=== PATIENT | female | born 1945 | race Caucasian/White ===

== ENCOUNTER → 2016-09-04 | Outpatient (CLI) | payer MEDICARE ==
[~2016-09-04] MED LIST: AMLO10TA2 PO; ASPI81CH CHEW; CORE25TA PO; FURO1TAB60 PO; LANTUS2P SQ; LEXA10TA PO; LISI40TA PO; MULT-65 PO; NOVO7030P2 SQ; PLAV75TA29 PO; PRAV40TA2 PO; VITA1000 PO
[2016-09-04 08:30] LABS: HEMATOCRIT 40.7 % (35.0-46.0); MEAN CELL VOLUME 90.2 FL (80.0-100.0); MEAN CORPUSCULAR HEMOGLOBIN 29.1 PG (27.0-34.0); MEAN CORPUSCULAR HGB CONC 32.2 % (32.0-36.0); PLATELET COUNT 384 TH/MM3 (150-450); RED BLOOD COUNT 4.51 MIL/MM3 (4.00-5.30); RED CELL DISTRIBUTION WIDTH 18.7 % (11.6-17.2); REVIEW FLAG FINAL; WHITE BLOOD COUNT 10.6 TH/MM3 (4.0-11.0)
[2016-09-04 08:42] LABS: POTASSIUM 5.2 MEQ/L (3.5-5.1)
--- NOTE | 2016-09-04 09:22 | RADRPT ---
EXAM DATE/TIME: 09/04/2016 09:15 [facility] COMPARISON: No previous studies available for comparison. INDICATIONS : Evaluate for pneumonia, pneumothorax and communicable disease. Pre op for angiogram. MEDICAL HISTORY : None. SURGICAL HISTORY : None. ENCOUNTER: Initial ACUITY: 1 day PAIN SCORE: 0/10 LOCATION: Bilateral chest FINDINGS: PA and lateral views of the chest demonstrate the lungs to be symmetrically aerated without evidence of mass, infiltrate or effusion. Heart size is upper limits of normal and well compensated. Left IJ t unneled dialysis type catheter with the tip projecting over the central venous system. Osseous struct ures are intact. Surgical clips in the right upper abdominal quadrant are characteristic of prior cho lecystectomy. CONCLUSION: No acute cardiopulmonary process. Terrence Bridges MD on September 04, 2016 at 9:19 Board Certified Radiologist. This report was verified electronically.
--- NOTE | 2016-09-04 16:50 | EKG ---
Date Performed: 09/04/2016 Time Performed: 08:37:07 PTAGE: 70 years EKG: Sinus rhythm POSSIBLE OLD ANTERIOR MYOCARDIAL INFARCTION, OF INDETERMINATE AGE ABNORMAL ECG NO PREVIOUS TRACING DOCTOR: Compa Arguello Interpretating Date/Time 09/04/2016 16:49:57
== END ==
LOC: CPRE 08:05
PROVIDERS: ATTEND Surgery
DX: Z01.812 Encounter for preprocedural laboratory examination (principal); Z01.811 Encounter for preprocedural respiratory examination; Z01.810 Encounter for preprocedural cardiovascular examination; N18.6 End stage renal disease; R94.31 Abnormal electrocardiogram [ECG] [EKG]
CPT/HCPCS: 36415; 71020; 80048; 85027; 93005

== ENCOUNTER → 2016-09-11 | Day surgery (SDC) | payer MEDICARE ==
[~2016-09-11] VITALS: Ht 162.6 cm; Wt 65.0 kg
[~2016-09-11] MED LIST changes: +CHLORHEXIDINE GLUCONATE 2 % 1 PACK (2 CLOTHS) TOPICAL PRN; +HEPARIN SODIUM - IV 10,000 UNITS/10 ML VIAL ONE; +INSULIN HUMAN REGULAR 1,000 UNITS/10 ML VIAL SQ PRN; +IOHEXOL 300 MG/ML 100 ML BTL (for Rad CT) OTHER ONE; +IOHEXOL 300 MG/ML 50 ML BTL (for RAD DIAG) OTHER ONE; +IOHEXOL 350 MG/ML 100 ML BTL (for Cath Lab) OTHER ONE; +IOHEXOL 350 MG/ML 50 ML BTL (for Cath Lab) OTHER ONE; +LACTATED RINGER'S 1000 ML IV PRN; +LIDOCAINE HCL 1% 30 ML VIAL INFIL ONE; +METOPROLOL TARTRATE 25 MG TAB PO PRN; +MIDAZOLAM HCL 5 MG/ML VIAL (1 ML) ONE; +POVIDONE IODINE 5% (ANTISEPSIS KIT) 4 APPLICATIONS EACH NARE PRN; +SODIUM CHLORID 0.9% 500 ML IV PRN
[2016-09-11 09:02] VITALS: BP 176/64; PULSE 64; RESP 18; TEMP 98.1; O2SAT 99
--- NOTE | 2016-09-11 13:37 | MA ---
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 History of long-term access in the left neck vein and with a history of her right upper extremity, she wanted to assess the left upper extremity. PROCEDURES 1. Venogram left upper extremity 2. Arteriogram 3. Venogram left upper extremity 4. Angiogram left upper extremity 5. Thoracic arch arteriogram 6. Angio-Seal right groin SURGEON Lamin Tadeo, DO IV FLUIDS 200 cc ANESTHESIA MAC and local 5 cc of 1% lidocaine ESTIMATED BLOOD LOSS Minimal URINE OUTPUT Not calculated. COMPLICATIONS None DISPOSITION To the DOC unit. PROCEDURE The patient's left wrist was accessed and cannulated for venous access. I ended up getting a small cannula in the left upper extremity and shot a left upper extremity venogram. The findings on the venogram were that the patient had a radial vein that appeared to be patent. The patient did not appear to have any adequate cephalic or basilic vein distally. It should be noted the patient did appear to have a brachial vein that gave rise to the basilic vein for the upper arms as it approached the arm pit. The patient did appear to have patent blood supply through the left axillary and subclavian veins as well as the SVC, although this is a little difficult to see as the patient did have a central venous line in this area. FINDINGS At the conclusion, there did not appear to be central venous occlusion, although there did appear to be a brachial vein as well as a more proximal basilic vein that was interconnected by the brachial vein as it was approaching the arm pit. After we got access to the right common femoral artery, I did not used duplex ultrasound, I used palpation of the artery and placed a 21 gauge needle in exchange for a 4-Emirati micropuncture catheter then a 5-Emirati sheath. I then advanced a pigtail catheter into the thoracic arch and shot a thoracic arch arteriogram in the proximal AMHARIC of about 45 degrees. After I shot my thoracic arch arteriogram, it showed be noted that findings were that the patient had a patent proximal innominate left common carotid and left subclavian arteries. I then used a vertebral catheter to cannulate the left subclavian artery and shot a left upper extremity arteriogram. My findings were that the proximal subclavian artery appeared to be patent. The left origin of the left vertebral and internal mammary were patent. The left axillary and subclavian arteries appeared to be patent. The patient had a patent left brachial artery without any stenosis and two-vessel runoff via the radial and ulnar artery. It was somewhat diminutive as it approached the wrist, but appeared to be patent. I did not perform a palmar arch arteriogram as my catheter was advanced into the proximal left subclavian artery. CONCLUSION The patient appeared to have a flow-limiting stenosis in the left subclavian artery, axillary artery, brachial artery and more proximal radial and ulnar artery. At the end of my procedure, I used an Angio-Seal to close the right groin after I performed arteriogram which showed that my catheter was in the common femoral artery above the superficial femoral and profunda femoral artery. DO NITISH Arellano/LORENZA /12:56 PM /1:26 PM DAELSO
== END | disposition home or self-care (01) ==
LOC: HSDC 07:48
PROVIDERS: ATTEND Surgery
DX: I70.208 Unspecified atherosclerosis of native arteries of extremities, other extremity (principal)
CPT/HCPCS: 36215; 75605; 75716; 75820; 82948; 84132; 86850; 86900; 86901; C1769; G0269; J1644; J2250; J3010; Q9967

== ENCOUNTER → 2016-10-12 | Day surgery (SDC) | payer MEDICARE ==
[~2016-10-12] VITALS: Ht 162.6 cm; Wt 68.1 kg
[~2016-10-12] MED LIST changes: +ACETAMINOPHEN/HYDROcodone 325 MG/5 MG TAB PO PRN; +BUPIVACAINE HCL PF 0.5% 30 ML VIAL ONE; +CLON0.2T PO; +DO NOT ADM ANY ANTICOAGULANT DRUGS PRN; +GELFOAM SIZE 100 ONE; +HYDR-3799 PO; +HYDR-3801 PO; -IOHEXOL 300 MG/ML 100 ML BTL (for Rad CT) OTHER ONE; -IOHEXOL 300 MG/ML 50 ML BTL (for RAD DIAG) OTHER ONE; -IOHEXOL 350 MG/ML 100 ML BTL (for Cath Lab) OTHER ONE; -IOHEXOL 350 MG/ML 50 ML BTL (for Cath Lab) OTHER ONE; -LIDOCAINE HCL 1% 30 ML VIAL INFIL ONE; -LISI40TA PO; -MIDAZOLAM HCL 5 MG/ML VIAL (1 ML) ONE; +MORPHINE SULFATE 8 MG/ML INJ IV PUSH PRN; +NOVOINJ SQ; +ONDANSETRON HCL 4 MG/2 ML VIAL IV PUSH ONE; +ONDANSETRON HCL 4 MG/2 ML VIAL IV PUSH PRN; +PHENYLEPH/NS 1000 MCG/10 ML SYR IV ONE; +PROPOFOL 200 MG/20 ML AMP IV ONE; +PROTAMINE SULFATE 50 MG/5 ML VIAL ONE; +SODIUM CHLORIDE 0.9% FLUSH 10 ML FLUSH IV FLUSH PRN; +SODIUM CHLORIDE 0.9% FLUSH 10 ML FLUSH IV FLUSH SCH; +THROMBIN (TOPICAL) 5,000 UNIT VIAL ONE; +VANCOMYCIN HCL 1000 MG VIAL ONE
[2016-10-12 10:37] LABS: ALT (GPT) 19 U/L (10-53); ANION GAP 10 MEQ/L (5-15); AST (GOT) 14 U/L (15-37); BICARBONATE 26.8 MEQ/L (21.0-32.0); BLOOD UREA NITROGEN 53 MG/DL (7-18); CHLORIDE 98 MEQ/L (98-107); GLOMERULAR FILTRATION RATE 7 ML/MIN (>89); POTASSIUM 5.7 MEQ/L (3.5-5.1); SODIUM (NA) 135 MEQ/L (136-145)
[2016-10-12 10:52] LABS: ALKALINE PHOSPHATASE 100 U/L (45-117); TOTAL BILIRUBIN ADULT 0.3 MG/DL (0.2-1.0)
[2016-10-12 11:32] LABS: AUTOMATED NEUTROPHIL # 8.9 TH/MM3 (1.8-7.7); BASOPHIL # 0.1 TH/MM3 (0-0.2); BASOPHIL % 0.8 % (0.0-2.0); EOSINOPHIL # 0.2 TH/MM3 (0-0.4); EOSINOPHIL % 1.3 % (0.0-4.0); HEMATOCRIT 35.1 % (35.0-46.0); HEMO FLAGS DIFF FINAL; LYMPH % 19.7 % (9.0-44.0); LYMPHOCYTE # 2.5 TH/MM3 (1.0-4.8); MEAN CELL VOLUME 91.8 FL (80.0-100.0); MEAN CORPUSCULAR HEMOGLOBIN 29.9 PG (27.0-34.0); MEAN CORPUSCULAR HGB CONC 32.5 % (32.0-36.0); MONO % 8.6 % (0.0-8.0); NEUT % 69.6 % (16.0-70.0); PLATELET COUNT 285 TH/MM3 (150-450); RED BLOOD COUNT 3.82 MIL/MM3 (4.00-5.30); WHITE BLOOD COUNT 12.7 TH/MM3 (4.0-11.0)
--- NOTE | 2016-10-12 13:17 | MP ---
cc: FER TADEO DATE OF SURGERY 10/12/2016 PREOPERATIVE DIAGNOSES 1. End-stage renal disease. 2. 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 POSTOPERATIVE DIAGNOSES 1. End-stage renal disease. 2. 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 PROCEDURES Left upper extremity brachial artery to brachial vein A-V fistula. SURGEON Dr. Fer Tadeo. FIREWORKS MAKER Tae Leo MD IV FLUIDS 200 cc. ESTIMATED BLOOD LOSS Minimal. URINE OUTPUT Not calculated. COMPLICATIONS None. DISPOSITION To PACU. PROCEDURE The patient's left upper extremity was prepped and draped in sterile fashion after being given 1 gram of IV vancomycin. I made a linear incision just above the antecubital fossa with a scalpel and electrocautery. It should be noted that before I did make my incision, we did use a tourniquet in order to determine if the patient had an appropriate vein to the left upper extremity. The patient did not have appropriate superficial veins but had brachial veins and the one vein that was on the more medial aspect appeared to be at least 3-4 mm in diameter. I dissected down through the bicipital aponeurosis after injecting approximately 15 cc of 1% lidocaine with epinephrine. Once I divided the bicipital aponeurosis, I mobilized the brachial artery and the parabrachial veins. I divided one of the parabrachial veins distally with a medium clip and a 2-0 tie. I controlled the brachial artery with a pediatric profunda clamp proximally and a vessel loop distally and then it should be noted I did give 3,000 units of heparin before performing my anastomosis which was an end-to-side anastomosis with a 5-0 Prolene on a BV1. It should be noted after the anastomosis there was a nice thrill in the brachial vein and then distally there were good signals in the palmar arch radial and ulnar arteries. I did use a small piece of Surgicel at the end of the case and I closed in layers with 2-0, 3-0 and a 4-0 Vicryl absorbable suture. I used Dermabond over the skin. The patient tolerated the procedure well and was taken to the PACU at the end of the case. DO DONALDO Arellano /12:33 PM /1:13 PM
[2016-10-12 14:15] VITALS: BP 131/71; PULSE 68; RESP 18; TEMP 98.3; O2SAT 98
== END | disposition home or self-care (01) ==
LOC: HSDC 08:15
PROVIDERS: ATTEND Surgery
DX: T82.590A Other mechanical complication of surgically created arteriovenous fistula, initial encounter (principal); I13.2 Hypertensive heart and chronic kidney disease with heart failure and with stage 5 chronic kidney disease, or end stage renal disease; N18.6 End stage renal disease; I50.9 Heart failure, unspecified; E11.22 Type 2 diabetes mellitus with diabetic chronic kidney disease; Z99.2 Dependence on renal dialysis
CPT/HCPCS: 01844; 36821; 76937; 80053; 82948; 85025; 86850; 86900; 86901; J1644; J2370; J2405; J2720; J3010; J3370

== ENCOUNTER → 2016-12-28 | Outpatient (CLI) | payer MEDICARE ==
[~2016-12-28] MED LIST changes: -ACETAMINOPHEN/HYDROcodone 325 MG/5 MG TAB PO PRN; -BUPIVACAINE HCL PF 0.5% 30 ML VIAL ONE; -CHLORHEXIDINE GLUCONATE 2 % 1 PACK (2 CLOTHS) TOPICAL PRN; -DO NOT ADM ANY ANTICOAGULANT DRUGS PRN; +FAMOTIDINE 20 MG/2 ML VIAL ONE; -GELFOAM SIZE 100 ONE; -HEPARIN SODIUM - IV 10,000 UNITS/10 ML VIAL ONE; -INSULIN HUMAN REGULAR 1,000 UNITS/10 ML VIAL SQ PRN; -LACTATED RINGER'S 1000 ML IV PRN; -METOPROLOL TARTRATE 25 MG TAB PO PRN; -MORPHINE SULFATE 8 MG/ML INJ IV PUSH PRN; -ONDANSETRON HCL 4 MG/2 ML VIAL IV PUSH ONE; -ONDANSETRON HCL 4 MG/2 ML VIAL IV PUSH PRN; -PHENYLEPH/NS 1000 MCG/10 ML SYR IV ONE; -POVIDONE IODINE 5% (ANTISEPSIS KIT) 4 APPLICATIONS EACH NARE PRN; -PROPOFOL 200 MG/20 ML AMP IV ONE; -PROTAMINE SULFATE 50 MG/5 ML VIAL ONE; -SODIUM CHLORID 0.9% 500 ML IV PRN; -SODIUM CHLORIDE 0.9% FLUSH 10 ML FLUSH IV FLUSH PRN; -SODIUM CHLORIDE 0.9% FLUSH 10 ML FLUSH IV FLUSH SCH; -THROMBIN (TOPICAL) 5,000 UNIT VIAL ONE; -VANCOMYCIN HCL 1000 MG VIAL ONE
[2016-12-28 09:21] LABS: AUTOMATED NEUTROPHIL # 8.7 TH/MM3 (1.8-7.7); BASOPHIL # 0.1 TH/MM3 (0-0.2); BASOPHIL % 0.8 % (0.0-2.0); EOSINOPHIL # 0.4 TH/MM3 (0-0.4); EOSINOPHIL % 2.9 % (0.0-4.0); HEMATOCRIT 36.1 % (35.0-46.0); HEMO FLAGS DIFF FINAL; LYMPHOCYTE # 2.3 TH/MM3 (1.0-4.8); MEAN CELL VOLUME 91.4 FL (80.0-100.0); MEAN CORPUSCULAR HEMOGLOBIN 29.5 PG (27.0-34.0); MEAN CORPUSCULAR HGB CONC 32.3 % (32.0-36.0); MONO % 10.3 % (0.0-8.0); PLATELET COUNT 325 TH/MM3 (150-450); RED BLOOD COUNT 3.95 MIL/MM3 (4.00-5.30); WHITE BLOOD COUNT 12.8 TH/MM3 (4.0-11.0)
[2016-12-28 09:41] LABS: POTASSIUM 4.6 MEQ/L (3.5-5.1)
--- NOTE | 2016-12-28 09:59 | RADRPT ---
EXAM DATE/TIME: 12/28/2016 09:36 [facility] COMPARISON: CHEST PA & LAT, September 04, 2016, 9:15. INDICATIONS : Evaluate for pneumonia, pneumothorax or communicable disease. Pre op left upper extremity fistula. MEDICAL HISTORY : Hypertension. Myocardial infarction. Diabetes mellitus type II. stroke, renal disease, tia SURGICAL HISTORY : infusaport ENCOUNTER: Initial ACUITY: 1 day PAIN SCORE: 0/10 LOCATION: Bilateral chest FINDINGS: PA and lateral views of the chest demonstrate the lungs to be symmetrically aerated without evidence of mass, infiltrate or effusion. The left IJ dialysis catheter in good position. The cardiomediastina l contours are unremarkable. Osseous structures are intact. CONCLUSION: 1. No acute cardiopulmonary disease. Siddhartha Abdalla MD on December 28, 2016 at 9:57 Board Certified Radiologist. This report was verified electronically.
--- NOTE | 2016-12-28 19:19 | EKG ---
Date Performed: 12/28/2016 Time Performed: 09:03:20 PTAGE: 71 years EKG: Sinus rhythm WITH OCCASIONAL SUPRAVENTRICULAR PREMATURE COMPLEXES ST DEVIATION AND MODERATE T-WAVE ABNORMALITY, C ONSIDER LATERAL ISCHEMIA ABNORMAL ECG PREVIOUS TRACING : 09/04/2016 08.37 Compared to prior tracing no significant change DOCTOR: Deacon Ramsay Interpretating Date/Time 12/28/2016 19:17:35
== END ==
LOC: CPRE 08:33
PROVIDERS: ATTEND Surgery
DX: Z01.810 Encounter for preprocedural cardiovascular examination (principal); Z01.811 Encounter for preprocedural respiratory examination; Z01.812 Encounter for preprocedural laboratory examination; N18.6 End stage renal disease; R94.31 Abnormal electrocardiogram [ECG] [EKG]
CPT/HCPCS: 36415; 71020; 80048; 85025; 86850; 86900; 86901; 93005

== ENCOUNTER → 2017-01-04 | Day surgery (SDC) | payer MEDICARE ==
[~2017-01-04] VITALS: Ht 162.6 cm; Wt 66.8 kg
[~2017-01-04] MED LIST changes: +*LABETALOL HCL 100 MG/20 ML VIAL PERIprocedural Use ONLY ONE; +ACETAMINOPHEN/HYDROcodone 325 MG/5 MG TAB PO PRN; +BUPIVACAINE HCL PF 0.5% 30 ML VIAL ONE; +CHLORHEXIDINE GLUCONATE 2 % 1 PACK (2 CLOTHS) TOPICAL PRN; +DEXAMETHASONE SOD PHOS 4 MG/ML VIAL IV ONE; +DO NOT ADM ANY ANTICOAGULANT DRUGS PRN; -FAMOTIDINE 20 MG/2 ML VIAL ONE; +GELFOAM SIZE 100 ONE; +HEPARIN SODIUM - IV 10,000 UNITS/10 ML VIAL ONE; +HEPARIN SODIUM - IV 2,000 UNITS/2 ML VIAL ONE; +HEPARIN-NS/PF INJ 0 ML ONE; +HEPARIN-NS/PF INJ 500 ML ONE; +INSULIN HUMAN REGULAR 1,000 UNITS/10 ML VIAL SQ PRN; +LACTATED RINGER'S 1000 ML IV PRN; +LIDOCAINE HCL 1% PF 5 ML AMPULE OTHER ONE; +MAGNESIUM SULFATE 1 GM/100 ML IV PRN; +METOPROLOL TARTRATE 25 MG TAB PO PRN; +MORPHINE SULFATE 4 MG/ML INJ IV PUSH PRN; +ONDANSETRON HCL 4 MG/2 ML VIAL IV PUSH ONE; +ONDANSETRON HCL 4 MG/2 ML VIAL IV PUSH PRN; +PHENYLEPH/NS 1000 MCG/10 ML SYR IV ONE; +POTASSIUM CHLOR 20 MEQ 100 ML x 2 BAGS IV PRN; +POTASSIUM CHLOR 20 MEQ/100 ML x 1 BAG IV PRN; +POTASSIUM PHOSPHATE 21 MMOL/NS 250 ML IV PRN; +POVIDONE IODINE 5% (ANTISEPSIS KIT) 4 APPLICATIONS EACH NARE PRN; +PROPOFOL 200 MG/20 ML AMP IV ONE; +PROTAMINE SULFATE 50 MG/5 ML VIAL ONE; +SODIUM CHLOR 0.9% 250 ML INJ 250 ML ONE; +SODIUM CHLORID 0.9% 500 ML IV PRN; +SODIUM CHLORIDE 0.9% FLUSH 10 ML FLUSH IV FLUSH PRN; +SODIUM CHLORIDE 0.9% FLUSH 10 ML FLUSH IV FLUSH SCH; +THROMBIN (TOPICAL) 20,000 UNIT SPRAY KIT ONE; +VANCOMYCIN HCL 1000 MG VIAL ONE; +ePHEDrine/NS 25 MG/5 ML SYR IV ONE; +hydrALAZINE HCL 20 MG/ML VIAL IV ONE
--- NOTE | 2017-01-04 17:10 | MP ---
cc: FER TADEO DATE OF SURGERY 01/04/2017 PREOPERATIVE DIAGNOSIS End-stage renal disease. A history of brachial vein arterial venous anastomosis of the left upper extremity. PROCEDURE The left upper extremity brachial vein transposition. SURGEON Dr. Fer Tadeo. MILITARY LAWYER Sivakumar Yadav. ANESTHESIA General with 20 mL of 0.25% Marcaine with epinephrine. IV FLUIDS 600 mL of crystalloid ESTIMATED BLOOD LOSS 100 URINE OUTPUT Not calculated. COMPLICATIONS None DISPOSITION To PACU PROCEDURE DETAILS The patient's left upper extremity was prepped and draped in sterile fashion under general tracheal anesthesia. We did give the patient 1 gram of IV vancomycin perioperatively. Then I made an incision over the medial aspect of the left upper extremity with a scalpel and electrocautery. I dissected down with Metzenbaum scissors along the level of the brachial vein. The brachial vein was paired and it coursed underneath the median nerve. It should be noted that the distal aspect of the brachial vein towards antecubital fossa had a thrill and it coursed underneath the median nerve and then in this area it had a nice thrill but it was fairly constricted. It should be noted that the more distal aspect of the vessel was more dilated. I did free it of any side branches with 3-0 and 4-0 silk sutures as well as multiple small and medium clips as needed. I marked the vein so it was not torsed and I the incision from the antecubital fossa towards the axilla. I divided the vessel close to the previous anastomosis at the antecubital fossa and I heparinized the patient with approximately 3000 units of heparin. I performed an end-to-side anastomosis after I took the vessel from underneath the median nerve and back over. Afterwards there was still constricted area of approximately 3-4 fingerbreadths that did not appear to dilate even under arterial pressure and being transposed. Based on this I took a piece of 5 mm x about 4-5 cm length bovine carotid arteriograph. I divided out the segment that appeared to be unhealthy and nondilated, and then sewed in an interposition carotid arterial bovine graft in this area. It should be noted I sewed this in with 5-0 Prolene in a continuous fashion on both sides. No correction sutures were needed at the end of the procedure and there was a nice thrill in the vessel. The patient also had good signals in the radial distribution at the wrist. After the procedure was finished I closed the deep layer with interrupted 2-0 Vicryl and the more superficial tissue with 3-0 Vicryl interrupted sutures. I made sure to cannot constrict the vessel right underneath the skin. I used a 4-0 Monocryl to run along the length of the subcutaneous space and I did use approximately 20 mL of 0.25% Marcaine with epinephrine to anesthetize the area. I used Dermabond for the skin and wrapped the area with a Kerlix at the end of the case. The patient tolerated the procedure fine and was taken to the PACU at the end of the case. DO ELVER Arellano /2:51 PM /4:52 PM
[2017-01-04 17:15] VITALS: BP 165/66; PULSE 83; RESP 18; TEMP 97.4; O2SAT 97
== END | disposition home or self-care (01) ==
LOC: HSDC 12-30 10:20
PROVIDERS: ATTEND Surgery
DX: N18.6 End stage renal disease (principal); E11.9 Type 2 diabetes mellitus without complications; Z79.4 Long term (current) use of insulin
CPT/HCPCS: 01844; 36819; 76937; 82948; 84132; 86850; 86900; 86901; J0360; J1100; J1644; J2370; J2405; J3010; J3370; J7040; J7050; J2720

== ENCOUNTER 2017-02-22 10:35 | Day surgery (SDC) | payer MEDICARE ==
[~2017-02-22] VITALS: Ht 162.6 cm; Wt 70.1 kg
[~2017-02-22 10:35] MED LIST changes: -*LABETALOL HCL 100 MG/20 ML VIAL PERIprocedural Use ONLY ONE; -ACETAMINOPHEN/HYDROcodone 325 MG/5 MG TAB PO PRN; +ASPI-516 CHEW; -ASPI81CH CHEW; -BUPIVACAINE HCL PF 0.5% 30 ML VIAL ONE; -CHLORHEXIDINE GLUCONATE 2 % 1 PACK (2 CLOTHS) TOPICAL PRN; -DEXAMETHASONE SOD PHOS 4 MG/ML VIAL IV ONE; -DO NOT ADM ANY ANTICOAGULANT DRUGS PRN; -GELFOAM SIZE 100 ONE; -HEPARIN SODIUM - IV 10,000 UNITS/10 ML VIAL ONE; -HEPARIN SODIUM - IV 2,000 UNITS/2 ML VIAL ONE; -HEPARIN-NS/PF INJ 0 ML ONE; -HEPARIN-NS/PF INJ 500 ML ONE; -HYDR-3801 PO; -INSULIN HUMAN REGULAR 1,000 UNITS/10 ML VIAL SQ PRN; -LACTATED RINGER'S 1000 ML IV PRN; -LEXA10TA PO; -LIDOCAINE HCL 1% PF 5 ML AMPULE OTHER ONE; -MAGNESIUM SULFATE 1 GM/100 ML IV PRN; -METOPROLOL TARTRATE 25 MG TAB PO PRN; -MORPHINE SULFATE 4 MG/ML INJ IV PUSH PRN; -NOVO7030P2 SQ; -ONDANSETRON HCL 4 MG/2 ML VIAL IV PUSH ONE; -ONDANSETRON HCL 4 MG/2 ML VIAL IV PUSH PRN; -PHENYLEPH/NS 1000 MCG/10 ML SYR IV ONE; -POTASSIUM CHLOR 20 MEQ 100 ML x 2 BAGS IV PRN; -POTASSIUM CHLOR 20 MEQ/100 ML x 1 BAG IV PRN; -POTASSIUM PHOSPHATE 21 MMOL/NS 250 ML IV PRN; -POVIDONE IODINE 5% (ANTISEPSIS KIT) 4 APPLICATIONS EACH NARE PRN; -PRAV40TA2 PO; -PROPOFOL 200 MG/20 ML AMP IV ONE; -PROTAMINE SULFATE 50 MG/5 ML VIAL ONE; -SODIUM CHLOR 0.9% 250 ML INJ 250 ML ONE; -SODIUM CHLORID 0.9% 500 ML IV PRN; -SODIUM CHLORIDE 0.9% FLUSH 10 ML FLUSH IV FLUSH PRN; -SODIUM CHLORIDE 0.9% FLUSH 10 ML FLUSH IV FLUSH SCH; -THROMBIN (TOPICAL) 20,000 UNIT SPRAY KIT ONE; -VANCOMYCIN HCL 1000 MG VIAL ONE; -ePHEDrine/NS 25 MG/5 ML SYR IV ONE; -hydrALAZINE HCL 20 MG/ML VIAL IV ONE
[2017-02-22] MEDS ORDERED: IOHEXOL 350 MG/ML 50 ML BTL (for Cath Lab) OTHER ONE (10:36)
[2017-02-22] MEDS ORDERED: SODIUM CHLOR 0.9% 1000 ML INJ 1,000 ML IV SCH (11:15)
[2017-02-22] MEDS ORDERED: SODIUM CHLORIDE 0.9% FLUSH 10 ML FLUSH IV FLUSH PRN (11:15)
[2017-02-22 11:46] VITALS: BP 171/69; PULSE 71; RESP 17; TEMP 98.1; O2SAT 98
[2017-02-22 12:36] LABS: AUTOMATED NEUTROPHIL # 7.7 TH/MM3 (1.8-7.7); BASOPHIL # 0.1 TH/MM3 (0-0.2); BASOPHIL % 0.9 % (0.0-2.0); EOSINOPHIL # 0.3 TH/MM3 (0-0.4); EOSINOPHIL % 2.5 % (0.0-4.0); HEMATOCRIT 30.9 % (35.0-46.0); HEMO FLAGS DIFF FINAL; LYMPH % 16.4 % (9.0-44.0); LYMPHOCYTE # 1.8 TH/MM3 (1.0-4.8); MEAN CELL VOLUME 91.6 FL (80.0-100.0); MEAN CORPUSCULAR HEMOGLOBIN 29.7 PG (27.0-34.0); MEAN CORPUSCULAR HGB CONC 32.5 % (32.0-36.0); MONO % 9.7 % (0.0-8.0); NEUT % 70.5 % (16.0-70.0); PLATELET COUNT 321 TH/MM3 (150-450); RED BLOOD COUNT 3.38 MIL/MM3 (4.00-5.30); RED CELL DISTRIBUTION WIDTH 15.9 % (11.6-17.2)
--- NOTE | 2017-02-22 13:22 | HHI.HP ---
History of Present Illness Chief Complaint: failing L UE AVF History of Present Illness 71 yo female with L UE AVF, not maturing. Does have some hand complaints in numbness. Getting HD via chest catheter. Past/Family/Social History Past Medical History ESRD HTN DM CAD Past Surgical History L UE AVF( brachiobasilic ) Social History non smoker Family History NC Home Medications Reported Medications Insulin Aspart Inj (Novolog Penfill Inj) 300 Unit/3 Ml Pen, 2-10 UNITS SQ TIDAC Y for Blood Sugar Management, BOX 0 Refills 10/12/16 Clonidine (Clonidine) 0.2 Mg Tab, 0.2 MG PO BID for Blood Pressure Management, # 60 TAB 0 Refills 10/12/16 Hydralazine HCl (Hydralazine HCl) 25 Mg Tablet, 50 MG PO DAILY for Blood Pressure Management, #60 TAB 0 Refills 10/12/16 Cholecalciferol (Vitamin D-1000) 1,000 Unit Tab, 2000 UNITS PO DAILY for Nutritional Supplement, #1 BOTTLE 0 Refills 09/04/16 Multiple Vitamin (Multi-Vitamin Daily) 1 Tab Tab, 1 TAB PO DAILY for Nutritional Supplement, TAB 0 Refills 09/04/16 Insulin Glargine Inj (Lantus Inj) 1,000 Unit/10 Ml Vial, 16 UNIT SQ HS for Blood Sugar Management, VIAL 0 Refills PT STATES SHE FOLLOWS SS 09/04/16 Furosemide (Lasix) 40 Mg Tab, 40 MG PO DAILY, #30 TAB 0 Refills 09/04/16 Clopidogrel (Plavix) 75 Mg Tab, 75 MG PO DAILY for Blood Clot Prevention, #30 TAB 0 Refills 09/04/16 Carvedilol (Coreg) 25 Mg Tab, 25 MG PO BID, #60 TAB 0 Refills 09/04/16 Aspirin (Aspirin) 81 Mg Chew, 81 MG CHEW ONCE, #1 TAB 0 Refills 09/04/16 Amlodipine (Amlodipine) 10 Mg Tab, 10 MG PO DAILY for Blood Pressure Management , #30 TAB 0 Refills 09/04/16 Coded Allergies: No Known Allergies (Unverified , 01/04/17) Review of Systems Eyes: DENIES: Blurred vision, Diplopia, Eye inflammation, Eye pain, Vision loss , Photosensitivity, Double Vision Cardiovascular: DENIES: Chest pain, Palpitations, Syncope, Dyspnea on Exertion , PND, Lower Extremity Edema, Orthopnea, Claudication Physical Exam Vitals/I&O Date Time Temp Pulse Resp B/P (MAP) Pulse Ox O2 Delivery O2 Flow Rate FiO2 02/22/17 11:46 98.1 71 17 171/69 (103) 98 Neuro: alert, no complaints, OGLESBY HEENT: NC/AT Neck: trachea midline Heart: reg rate Lungs: clear, nonlabored breathing Vascular: LUE + thrill, weak Extremities: no C/C/E Laboratory Tests Test 02/22/17 11:34 02/22/17 13:12 White Blood Count 11.0 Red Blood Count 3.38 Hemoglobin 10.0 Hematocrit 30.9 Mean Corpuscular Volume 91.6 Mean Corpuscular Hemoglobin 29.7 Mean Corpuscular Hemoglobin Concent 32.5 Red Cell Distribution Width 15.9 Platelet Count 321 Mean Platelet Volume 9.7 Neutrophils (%) (Auto) 70.5 Lymphocytes (%) (Auto) 16.4 Monocytes (%) (Auto) 9.7 Eosinophils (%) (Auto) 2.5 Basophils (%) (Auto) 0.9 Neutrophils # (Auto) 7.7 Lymphocytes # (Auto) 1.8 Monocytes # (Auto) 1.1 Eosinophils # (Auto) 0.3 Basophils # (Auto) 0.1 CBC Comment DIFF FINAL Differential Comment Prothrombin Time 11.0 Prothromb Time International Ratio 1.0 Caprini VTE Risk Assessment Caprini VTE Risk Assessment: No/Low Risk (score <= 1) Caprini Risk Assessment Model Point Value = 1 Point Value = 2 Point Value = 3 Point Value = 5 Age 41-60 Minor surgery BMI > 25 kg/m2 Swollen legs Varicose veins or History of unexplained or recurrent spontaneous Oral contraceptives or hormone replacement Sepsis (< 1 month) Serious lung disease, including pneumonia (< 1 month) Abnormal pulmonary function Acute myocardial infarction Congestive heart failure (< 1 month) History of inflammatory bowel disease Medical patient at bed rest Age 61-74 Arthroscopic surgery Major open surgery (> 45 min) Laparoscopic surgery (> 45 min) Malignancy Confined to bed (> 72 hours) Immobilizing plaster cast Central venous access Age >= 75 History of VTE Family history of VTE Factor V Leiden Prothrombin [id number] Lupus anticoagulant Anticardiolipin antibodies Elevated serum homocysteine Heparin-induced thrombocytopenia Other congenital or acquired thrombophilia Stroke (< 1 month) Elective arthroplasty Hip, pelvis, or leg fracture Acute spinal cord injury (< 1 month) Prophylaxis Regimen Total Risk Factor Score Risk Level Prophylaxis Regimen 0-1 Low Early ambulation 2 Moderate Order ONE of the following: *Sequential Compression Device (SCD) *Heparin 5000 units SQ BID 3-4 Higher Order ONE of the following medications: *Heparin 5000 units SQ TID *Enoxaparin/Lovenox 40 mg SQ daily (WT < 150 kg, CrCl > 30 mL/min) *Enoxaparin/Lovenox 30 mg SQ daily (WT < 150 kg, CrCl > 10-29 mL/min) *Enoxaparin/Lovenox 30 mg SQ BID (WT < 150 kg, CrCl > 30 mL/min) AND/OR *Sequential Compression Device (SCD) 5 or more Highest Order ONE of the following medications: *Heparin 5000 units SQ TID (Preferred with Epidurals) *Enoxaparin/Lovenox 40 mg SQ daily (WT < 150 kg, CrCl > 30 mL/min) *Enoxaparin/Lovenox 30 mg SQ daily (WT < 150 kg, CrCl > 10-29 mL/min) *Enoxaparin/Lovenox 30 mg SQ BID (WT < 150 kg, CrCl > 30 mL/min) AND *Sequential Compression Device (SCD) Assessment and Plan Plan L UE fistulogram To OR. Operative site marked. Discharge Planning today Kevon Sanchez MD Feb 22, 2017 13:22
[2017-02-22 13:43] LABS: POTASSIUM 6.4 MEQ/L (3.5-5.1)
[2017-02-22] MEDS ORDERED: HEPARIN-NS/PF INJ 500 ML ONE (14:45)
[2017-02-22] MEDS ORDERED: HEPARIN SODIUM - IV 10,000 UNITS/10 ML VIAL ONE (15:00)
[2017-02-22] MEDS ORDERED: ONDANSETRON HCL 4 MG/2 ML VIAL ONE (15:32)
--- NOTE | 2017-02-22 15:38 | HHI.PR ---
Immediate Post Op Note Procedure Date: Feb 22, 2017 Pre Op Diagnosis: failing L UE AVF Post Op Diagnosis: failing L UE AVF Surgeon: Kevon Sanchez Veneer Lathe Operator(s): none Procedure: Thoracic aortogram w/ L UE angiogram Fistulogram w/ EDGE CUTTING MACHINE OPERATOR of vein (6mm) R EDUCATION SALES CONSULTANT Angioseal Findings: proximal AVF and mid AVF stenoses, both EDGE CUTTING MACHINE OPERATOR to 6mm Additional Information: none Complications: none Specimen(s) removed: none Estimated blood loss: 10mL Anesthesia: MAC Drains: None Fluids: 200 IVF Patient to: Other (DOCU) Patient Condition: Good Implant/Devices: SEE IMPLANT LOG (if applicable) Date/Time of Procedure: SEE SURGICAL CARE RECORD Kevon Sanchez MD Feb 22, 2017 15:38
--- NOTE | 2017-02-22 15:46 | CATHPROC ---
[facility] HIS Report Study Information Study Number Admission Scheduled Start Study Start [id number] Feb 22 2017 10:35AM 02/22/2017 Feb 22 2017 2:31PM [place] [facility] Cath Endovascular Study Admit Source Facility Department Other [facility] Physician and Clinical Staff Initial MD Sanchez, Kevon Faculty Headcamelia Bond RN, Derek Recorder Alvaro Lea,RT(R) Marko Paniagua,RT(R) Procedures Performed Procedure Location (Site) Vessel Name Aortic Arch COMMERCIAL PILOT Fistula Arterial Graft Wire insertion Fem Art (right) Femoral Art Equipment Time Liability Claims Examiner Description Size Mfg Part Number Used/Scraped INTRODUCER SET, [id number] 14:51 [employer] FR 5 Used MICROPUNCTURE *[id number] INTRODUCER SET, 14:52 [employer] FR 5 [id number] *[id number] Used MICROPUNCTURE, STIFFENED [id number] *[id number] 15:31 DAIG/[employer]. STEPH MEDICAL ANGIOSEAL, FR6 VIP FR 6 Used *[id number] BALLOON, ADMIRAL EXTREME 6 [id number] 15:15 [employer] 130CM Used X 60 130CM *[id number] CATHETER, FR5 TRAILBLAZER [id number] 15:18 [employer] 135CM Used .035 *[id number] 14:52 [employer] PACK, CCL CUSTOM * Used *[id number] 15:31 [employer] MEDICAL 30 ERVIN INDEFLATOR Used *[id number] 14:52 [employer] MEDICAL PRESSURE TUBING 48" 48" [id number] 15:02 [employer] WIRE, ALCANTARA 260CM .035 260CM Used *[id number] 14:52 NAMIC TUBING, HIGH PRESSURE 20" 20" Used *[id number] 14:52 [employer] OMNIPAQUE, 300 MG, 150ML 150ML [id number] Used 14:52 [employer] OMNIPAQUE, 300 MG, 50ML 50ML [id number] Used [id number] 14:52 [employer] BLANKET,WARM AIR CCL * Used *[id number] 14:51 TER[employer] MEDICAL SHEATH, FR5 TERUMO (10CM) FR 5 Used *[id number] CATHETER, FR4 STR GLIDE 15:09 [employer] MEDICAL/LILIYA FR 4 [id number] *[id number] Used 120CM 14:58 [employer] MEDICAL/LILIYA CATHETER, FR5 ANGLED 100CM FR 5 [id number] *[id number] Used SHEATH, FR6 PINNACLE 15:03 [employer] MEDICAL/LILIYA FR 6 [id number] Used DESTINATION 65CM WIRE, ANGLE GLIDE STIFF .035 15:21 [employer] MEDICAL/LILIYA 260CM [id number] Used 260CM WIRE, ANGLED GLIDE .035 [id number] 14:52 [employer] MEDICAL/LILIYA 260CM Used 260CM *[id number] History: Allergies Allergy Reaction No Known Allergies Labs Hgb (g/dl) Hct (%) WBC (l/cumm) Platelets (thousands) 11.60-17.00 35.00-51.00 4.00-11.00 150.00-450.00 10.0 30.9 11 321 Glucose (mg/dl) BUN (mg/dl) Creatinine (mg/dl) BUN:Creatinine (1:x) 74.00-106.00 7.00-18.00 0.50-1.30 10.00-20.00 178 45 5.4 8.3 Na (meq/l) K (meq/l) 136.00-145.00 3.50-5.10 131 6.4 Medication Medication Total Dose (Bolus/Oral) Medication Total Dosage/Unit 1% XYLOCAINE 20 mL FENTANYL 100 mcg HEPARIN 5000 units ZOFRAN 4 mg Medications (Bolus/Oral) Medication Time Given Dosage/Unit Administered By Reason FENTANYL 02/22/2017 2:48:14 PM 50 mcg Derek Bond RN 50 mcg FENTANYL given in lab by Derek Bond RN in Left Hand via Peripheral IV. Ordered by Catalina Sanchez 1% XYLOCAINE 02/22/2017 2:50:32 PM 20 mL Kevon Sanchez 20 mL 1% XYLOCAINE given in lab by Kevon Sanchez in Right Groin via Subcutaneous. Ordered by Kevon Sanchez. HEPARIN 02/22/2017 3:00:45 PM 5000 units Derek Bond RN 5000 units HEPARIN given in lab by Derek Bond RN in Left Hand via Peripheral IV. Ordered by Kevon Sanchez. FENTANYL 02/22/2017 3:16:35 PM 25 mcg Derek Bond RN 25 mcg FENTANYL given in lab by Derek Bond RN via Peripheral IV. Ordered by Kevon Sanchez. FENTANYL 02/22/2017 3:24:27 PM 25 mcg Derek Bond RN 25 mcg FENTANYL given in lab by Derek Bond RN in Left Hand via Peripheral IV. Ordered by Catalina Sanchez. ZOFRAN 02/22/2017 3:33:43 PM 4 mg Derek Bond RN 4 mg ZOFRAN given in lab by Derek Bond RN in Left Hand via Peripheral IV. Ordered by Kevon Sanchez . Initial Case Assessment Cardiovascular HR Rhythm NIBP Chest Pain 76 sr 187/78 0 Edema Present Skin color Skin None Normal Warm Dry Circulatory - Right Pulses Dorsalis Pedis Femoral 2 2 Scale (0,1,2,3,4,d) Circulatory - Left Pulses Dorsalis Pedis Femoral 2 2 Scale (0,1,2,3,4,d) Neurological State Oriented to time-place- Alert Moves all extremities person Respiration - General Respiration Rate SpO2 (%) O2 (lpm) (B/min) 18 96 0 Chronological Log Time Study Chronological Log 14:31:45 Patient arrived via Bed. 14:31:46 Patient Name, D.O.B, / Armband Verified By R.N. 14:31:48 Consent signed by the physician and the patient and verified by the [facility] staff. 14:31:48 Pre-op and post- op instructions given; patient acknowledges understanding of instructions. 14:41:33 Verbal Stimulation=2 Physical Stimulation=2 Airway=2 Respiration=2 TOTAL=8. (0=absent, 1=li mited, 2=present) 14:42:30 Reference ECG taken 14:42:42 Presedation assessment performed by Quarry Manager RN. 14:42:48 Patient has been NPO for More than 6Hrs. 14:43:00 Skin Breakdown-none present per patient. Vitals capture started with the following parameters, Patient=Adult, Interval=5 min, Initial Pr ajbrdd=057 mmHg, 14:44:12 Deflation Rate=5 mmHg, Cuff placed on Right Arm 14:45:23 HR=80 bpm, DWNA=942/78 mmhg, SpO2=95.0 %, Resp=19 B/min, Mars=2 14:45:48 A # 20 IV was noted in the Antecubital (right). Grade = 0 14:47:21 History and physical on the chart or being dictated. Assessment: Initial Case, HR=76 BPM, Rhythm=sr, TSVD=318/78 mmhg, Chest Pain=0, Edema=None, Col or=Normal, Skin = Warm, Dry Right Pulses: Jeffrey Ped=2, Femoral=2 14:47:23 Left Pulses: Jeffrey Ped=2, Femoral=2 Neurological: State=Alert, Ox3, OGLESBY Respiration: Resp=18 B/min, SpO2=96 %, O2=0 lpm 14:48:14 50 mcg FENTANYL given in lab by Derek Bond RN in Left Hand via Peripheral IV. Ordered by Kevon Sanchez. 14:48:27 Bilateral groins prepped with 2% chlorhexidine, and draped after a 3 minute waiting time. Time Out. Correct patient, correct procedure, correct physician, power injector loaded with [email or web address] with surgical team 14:49:13 present. Time Out Concurred by MD and individual staff in procedure. Loaded by Derek Bond rn., verified by Marko Holliday. 14:49:48 Presedation re-assessment performed by Quarry Manager RN. 14:49:49 Case Start 14:50:00 HR=55 bpm, WIVJ=986/80 mmhg, SpO2=96.0 %, Resp=21 B/min, Mars=2 14:50:32 20 mL 1% XYLOCAINE given in lab by Kevon Sanchez in Right Groin via Subcutaneous. Ordered by Kevon Sanchez. 14:50:40 Access site was Right Femoral Artery. 14:50:45 A INTRODUCER SET, MICROPUNCTURE FR 5 was advanced into the Fem Art (right) using the Percut aneous technique. A SHEATH, FR5 TERUMO (10CM) FR 5 was exchanged in the Fem Art (right). This was necessary in or johnson to 14:51:02 accomodate a larger catheter. A PIGTAIL STR. INFINITI CATHETER FR 5 was advanced over a wire. OMNIPAQUE, 300 MG, 150ML 150ML was used for 14:54:00 injections. Through a PIGTAIL STR. INFINITI CATHETER FR 5, The Aortic Arch was injected at 20 ml/sec for a total of 10 cc's of 14:55:00 contrast. 14:55:01 HR=80 bpm, LEII=052/81 mmhg, SpO2=92.0 %, Resp=18 B/min, Mars=2 Through a PIGTAIL STR. INFINITI CATHETER FR 5, The Aortic Arch was injected at 20 ml/sec for a total of 10 cc's of 14:56:06 contrast. 14:57:43 A WIRE, ANGLED GLIDE .035 260CM 260CM was inserted via Fem Art (right). After removing the current catheter a CATHETER, FR5 ANGLED 100CM FR 5 was advanced over a WIRE, ANGLED 14:57:47 GLIDE .035 260CM 260CM. 15:00:00 HR=79 bpm, CBDY=562/78 mmhg, SpO2=97.0 %, Resp=20 B/min, Mars=2 15:00:39 A WIRE, ANGLED GLIDE .035 260CM 260CM was inserted via Fem Art (right). 15:00:45 5000 units HEPARIN given in lab by Derek Bond RN in Left Hand via Peripheral IV. Ordered by Kevon Sanchez. A SHEATH, FR6 PINNACLE DESTINATION 65CM FR 6 was exchanged in the Fem Art (right). This was nec essary in 15:03:16 order to accomodate a larger catheter. A CATHETER, FR5 ANGLED 100CM FR 5 was advanced over a wire. OMNIPAQUE, 300 MG, 50ML 50ML was us ed for 15:04:59 injections. 15:05:01 HR=82 bpm, VVBS=444/75 mmhg, SpO2=96.0 %, Resp=21 B/min, Mars=2 15:05:19 A WIRE, ANGLED GLIDE .035 260CM 260CM was inserted via Fem Art (right). After removing the current catheter a CATHETER, FR4 STR GLIDE 120CM FR 4 was advanced over a MARICRUZ VENCES 15:08:46 260CM .035 260CM. 15:10:02 HR=80 bpm, HQRH=067/74 mmhg, SpO2=97.0 %, Resp=22 B/min, Mars=2 15:11:08 Wire removed 15:11:25 A WIRE, ANGLED GLIDE .035 260CM 260CM was inserted via Fem Art (right). 15:14:28 Catheter was removed A BALLOON, ADMIRAL EXTREME 6 X 60 130CM 130CM was inserted over WIRE, ANGLED GLIDE .035 260CM 2 60CM 15:14:53 via the Fistula. 15:15:03 HR=75 bpm, UAIJ=182/81 mmhg, SpO2=97.0 %, Resp=22 B/min, Mars=2 15:16:35 25 mcg FENTANYL given in lab by Derek Bond RN via Peripheral IV. Ordered by Saurav Sanchez 15:16:59 Balloon Removed. No inflation 15:18:45 The previous wire was exchanged for a WIRE, ALCANTARA 260CM .035 260CM. 15:20:04 HR=80 bpm, UZRF=779/73 mmhg, SpO2=95.0 %, Resp=22 B/min, Mars=2 15:20:49 The previous wire was exchanged for a WIRE, ANGLE GLIDE STIFF .035 260CM 260CM. 15:22:06 Catheter was removed w/o difficulty A BALLOON, ADMIRAL EXTREME 6 X 60 130CM 130CM was inserted over WIRE, ANGLE GLIDE STIFF .035 2 60CM 15:22:08 260CM via the Fistula. 15:22:41 In the Fistula a BALLOON, ADMIRAL EXTREME 6 X 60 130CM 130CM was inflated to 14 atms for 1 20 seconds. 15:24:27 25 mcg FENTANYL given in lab by Derek Bond RN in Left Hand via Peripheral IV. Ordered by Kevon Sanchez. 15:25:03 HR=75 bpm, HCRO=315/83 mmhg, SpO2=96.0 %, Resp=21 B/min, Mars=2 15:25:32 In the Fistula a BALLOON, ADMIRAL EXTREME 6 X 60 130CM 130CM was inflated to 13 atms for 1 50 seconds. 15:27:47 Balloon Removed. 15:28:42 Wire removed 15:28:45 A WIRE, ALCANTARA 260CM .035 260CM was inserted via Fem Art (right). 15:30:06 Sheath removed 15:30:24 ANGIOSEAL, FR6 VIP FR 6 placement in the Fem Art (right) 15:30:39 HR=76 bpm, EIMP=346/81 mmhg, SpO2=99.0 %, Resp=20 B/min, Mars=2 15:31:40 Case End 15:33:43 4 mg ZOFRAN given in lab by Derek Bond RN in Left Hand via Peripheral IV. Ordered by Kevon Daniels. 15:34:12 Vitals capture stopped. Vitals capture started with the following parameters, Patient=Adult, Interval=5 min, Initial P knjfsvf=169 mmHg, 15:34:13 Deflation Rate=5 mmHg, Cuff placed on Right Arm 15:35:01 HR=85 bpm, NNTO=599/80 mmhg, SpO2=88.0 %, Resp=21 B/min, Mars=2 15:36:46 Sterile dressing applied to site 15:36:48 No case complications noted. 15:36:50 Cine recording checked. 15:36:54 Implantable Device card placed in patient's chart. 15:36:56 Contrast Scanned 15:40:06 HR=15 bpm, HBNO=565/73 mmhg, SpO2=97.0 %, Resp=24 B/min, Mars=2 15:41:43 Patient moved to stretcher 15:44:19 Vitals capture stopped. End Study - Contrast Media Used In Study Contrast Total Opened (mL) Total Used (mL) Total Wasted (mL) Omnipaque 50 50 0 End Study - Maximum Contrast Load Max Contrast Load (mL) 64.9 End Study - Radiation Exposure Fluoro Time (minutes) 15.9 End Study - Patient Disposition Complications Transferred To Telemetry Bed
--- NOTE | 2017-02-23 06:36 | MP ---
cc: KEVON SANCHEZ MD DATE OF OPERATION 02/22/2017 PREOPERATIVE DIAGNOSIS Left upper extremity failing arteriovenous fistula. POSTOPERATIVE DIAGNOSIS Left upper extremity failing arteriovenous fistula. PROCEDURE 1. Thoracic aortogram with left upper extremity angiogram. 2. Left upper extremity fistulogram. 3. Angioplasty of vein to 6 mm. ATTENDING SURGEON eKvon Sanchez MD ANESTHESIA Local with sedation. INDICATIONS Ms. Tong is an elderly female with diabetes and end-stage renal disease. She has a left brachiobasilic fistula which was placed elsewhere and is not maturing. She is taken to the operating room for angiographic evaluation and treatment. There is no prior catheter-based imaging available for my review. DESCRIPTION OF PROCEDURE Informed consent was obtained from the patient. She was taken to the operating room and placed supine on the operating room table. An appropriate time-out was taken to ensure the patient's identity, the operative site and planned procedure. The administration of antibiotics was not necessary as this is a clean procedure without the planned implantation of any foreign object. Everyone in the room agreed with the time-out and we proceeded. Her bilateral groins were prepped and the right groin anesthetized with 1% lidocaine. A 21-gauge micropuncture needle was used to access the right common femoral artery. This was exchanged using a Seldinger technique for a micropuncture sheath through which a 0.035 Glidewire was introduced. The micropuncture sheath was exchanged for a 5-Belizean sheath and the Glidewire was advanced to the ascending aorta. A pigtail catheter was advanced over this and thoracic aortogram was obtained. The Glidewire was reintroduced and the pigtail was exchanged for a vertebral catheter. Using the vertebral catheter and Glidewire we were able to navigate into the left subclavian axillary and proximal brachial arteries. Left upper extremity angiogram was obtained. The patient systemically heparinized with 5,000 units of IV heparin. A 0.035 Cook wire was advanced to the vertebral catheter, down to the mid-brachial artery and the vertebral catheter and 5-Belizean sheath were removed and a 6-Belizean, 70-cm sheath was introduced. The vertebral catheter was then reintroduced through the sheath and the Cook was exchanged for a Glidewire. Using the glide and vertebral catheter, we were able to navigate into the fistula itself and into the outflow vein and the Glidewire was exchanged for a stiffened Glidewire. A 6-mm angioplasty balloon was then used to angioplasty the proximal and midsegments of the fistula and the completion angiogram showed excellent angiographic result without any recoil or extravasation. The wire, catheter and sheath were removed and the groin was closed with AngioSeal. There were no complications. I was present and scrubbed and performed the entire procedure. INTERPRETATION OF IMAGES The patient has a patent there three-vessel arch without any in-flow occlusive disease. The left subclavian, axillary and brachial arteries are widely patent. There is no hemodynamically significant stenosis. The proximal aspect of the brachial basilic fistula is stenosed as is the mid-fistula and both of these are improved with 6-mm angioplasty. There is no outflow fistula stenosis. Kevon Sanchez MD RJF/SSB /5:18 AM /6:11 AM
== END 2017-02-22 16:55 | disposition home or self-care (01) ==
LOC: HCAT 10:35 → HDIC 10:38 → HCAT 16:55
PROVIDERS: ATTEND Surgery
DX: T82.898A Other specified complication of vascular prosthetic devices, implants and grafts, initial encounter (principal); N18.6 End stage renal disease; I12.0 Hypertensive chronic kidney disease with stage 5 chronic kidney disease or end stage renal disease; I25.10 Atherosclerotic heart disease of native coronary artery without angina pectoris; E11.22 Type 2 diabetes mellitus with diabetic chronic kidney disease; Z79.4 Long term (current) use of insulin; Z79.82 Long term (current) use of aspirin; Z99.2 Dependence on renal dialysis
CPT/HCPCS: 36217; 37248; 75605; 80048; 85025; 85610; C1725; C1751; C1769; C1887; C1893; J1644; J2405; J3010; Q9967